=== PATIENT | male | born 1995 | race Hispanic/Latino ===

== ENCOUNTER 2020-08-01 19:13 | Emergency (ER) | payer SELFPAY ==
[~2020-08-01] VITALS: Ht 175.3 cm; Wt 127.0 kg
[2020-08-01] MEDS ORDERED: ONDANSETRON HCL INJ 2MG/ML 2ML 2 MG/ML VIAL IV STA (19:22)
[2020-08-01 19:42] LABS: BASOPHILS % 0.3 % (0.0-1.0); EOSINOPHILS # (AUTO) 0.5 (0.0-0.4); EOSINOPHILS % 6.6 % (0.0-6.0); HEMATOCRIT 43.3 % (38.2-49.6); HEMOGLOBIN 14.4 g/dL (14.0-18.0); LYMPHOCYTES # (AUTO) 2.4 (1.0-3.2); LYMPHOCYTES % 33.2 % (18.0-39.1); MEAN CORPUSCULAR HEMOGLOBIN 28.6 pg (28-32); MEAN CORPUSCULAR HGB CONC 33.3 g/dL (31-35); MEAN CORPUSCULAR VOLUME 86.1 fL (81-99); MONOCYTES # (AUTO) 0.4 (0.2-0.8); NEUTROPHILS # (AUTO) 3.9 (2.1-6.9); NEUTROPHILS % 54.6 % (38.7-80.0); PLATELET COUNT 238 x10e3/uL (140-360); RED BLOOD COUNT 5.03 x10e6/uL (4.3-5.7); RED CELL DISTRIBUTION WIDTH 12.5 % (11.7-14.4)
[2020-08-01 19:55] LABS: CLARITY,URINE CLEAR (CLEAR); COLOR,URINE YELLOW (YELLOW)
[2020-08-01 19:56] LABS: KETONES,URINE NEGATIVE (NEGATIVE); LEUKOCYTE ESTERASE ,URINE NEGATIVE (NEGATIVE); NITRITE,URINE NEGATIVE (NEGATIVE); PROTEIN,URINE DIPSTICK NEGATIVE (NEGATIVE); URINE UROBILINOGEN 0.2 mg/dL (0.2 - 1)
[2020-08-01 20:02] LABS: RBC,URINE 0-5 /HPF (0-5); WBC,URINE (MAN) 0-5 /HPF (0-5)
[2020-08-01 20:07] LABS: AMYLASE 29 U/L (25-125); LIPASE 23 U/L (8-78)
[2020-08-01 20:12] LABS: ALANINE AMINOTRANSFERASE 106 IU/L (0-55); ALBUMIN 3.9 g/dL (3.5-5.0); ALBUMIN/GLOBULIN RATIO 1.1 (0.8-2.0); ALKALINE PHOSPHATASE 97 IU/L (40-150); ANION GAP 14.5 mmol/L (8-16); BLOOD UREA NITROGEN 12 mg/dL (7-26); BUN/CREATININE RATIO 12 (6-25); CALCIUM 8.7 mg/dL (8.4-10.2); CARBON DIOXIDE 21 mmol/L (22-29); CHLORIDE 108 mmol/L (98-107); EST GLOMERULAR FILTRATION RATE > 60 ML/MIN (60-); GLUCOSE 113 mg/dL (74-118); POTASSIUM 3.5 mmol/L (3.5-5.1); SODIUM 140 mmol/L (136-145)
[2020-08-01] MEDS ORDERED: LEVOFLOXACIN 500 MG TAB PO ONE (23:15)
[2020-08-01 23:22] VITALS: BP 139/72
== END 2020-08-01 23:24 | disposition home or self-care (01) ==
LOC: ER 19:52
DX: J18.9 Pneumonia, unspecified organism (principal); R11.0 Nausea; R10.13 Epigastric pain
CPT/HCPCS: 36415; 71046; 76705; 80053; 81001; 82150; 83690; 85025; 99284; J2405

== ENCOUNTER 2020-08-04 08:45 | Emergency (ER) | payer SELFPAY ==
[~2020-08-04] VITALS: Ht 175.3 cm; Wt 127.0 kg
== END 2020-08-04 09:43 | disposition home or self-care (01) ==
LOC: ER 09:12
DX: R11.2 Nausea with vomiting, unspecified (principal)
CPT/HCPCS: 99283

== ENCOUNTER 2020-08-13 09:44 | Emergency (ER) | payer SELFPAY ==
[~2020-08-13] VITALS: Ht 175.3 cm; Wt 117.9 kg
[2020-08-13] MEDS ORDERED: DEXAMETHASONE SOD PHOS 10 MG/1 ML VIAL IV ONE (10:15)
[2020-08-13] MEDS ORDERED: MAGNESIUM/ALUMINUM/SIMETHICONE 30 ML UDC PO ONE (10:30)
[2020-08-13] MEDS ORDERED: PREDNISONE20 MG PO (12:18)
[2020-08-13] MEDS ORDERED: CEFTRIAXONE SOD 1 GM VIAL IM ONE (12:30)
[2020-08-13] MEDS ORDERED: LIDOCAINE HCL 1% 2 ML AMP ONE (12:48)
== END 2020-08-13 12:44 | disposition home or self-care (01) ==
LOC: ER 10:22
DX: J05.10 Acute epiglottitis without obstruction (principal); R09.89 Other specified symptoms and signs involving the circulatory and respiratory systems; R13.10 Dysphagia, unspecified
CPT/HCPCS: 70360; 99283; J0696; J1100; J2001

== ENCOUNTER 2020-08-15 09:30 | Emergency (ER) | payer SELFPAY ==
[~2020-08-15] VITALS: Ht 175.3 cm; Wt 117.9 kg
[~2020-08-15 09:30] MED LIST: PREDNISONE20 MG PO
[2020-08-15 12:45] VITALS: BP 134/72
== END 2020-08-15 11:57 | disposition home or self-care (01) ==
LOC: ER 09:47
DX: J02.9 Acute pharyngitis, unspecified (principal)
CPT/HCPCS: 70360; 99283

== ENCOUNTER 2020-09-26 10:41 | Emergency (ER) | payer SELFPAY ==
[~2020-09-26] VITALS: Ht 175.3 cm; Wt 117.9 kg
[2020-09-26] MEDS ORDERED: DONNATAL/LIDOCAINE/MAALOX 30 ML SUSP PO STA (10:51)
[2020-09-26] MEDS ORDERED: PANTOPRAZOLE SOD 40 MG TABEC PO ONE (11:00)
[2020-09-26] MEDS ORDERED: LIDOCAINE VISC 2% SOLN 15 ML UDC ONE (11:22)
[2020-09-26] MEDS ORDERED: BELLADONNA ALK/PHENOBARBITAL 5 ML UDC ONE (11:22)
[2020-09-26] MEDS ORDERED: MAGNESIUM/ALUMINUM/SIMETHICONE 30 ML UDC ONE (11:22)
== END 2020-09-26 12:56 | disposition home or self-care (01) ==
LOC: ER 11:00
DX: R07.89 Other chest pain (principal); K21.9 Gastro-esophageal reflux disease without esophagitis; F41.9 Anxiety disorder, unspecified
CPT/HCPCS: 71045; 93005; 99282; S0164

== ENCOUNTER 2020-10-16 17:56 | Emergency (ER) | payer SELFPAY ==
[~2020-10-16] VITALS: Ht 175.3 cm; Wt 117.9 kg
[2020-10-16] MEDS ORDERED: ACETAMIN/BUTALBITAL/CAFFEINE TAB PO ONE (18:15)
[2020-10-16] MEDS ORDERED: MECLIZINE HCL 12.5 MG TAB PO ONE (18:15)
[2020-10-16] MEDS ORDERED: ONDANSETRON HCL 4 MG ORAL DISINTEGRATING TAB PO ONE (18:15)
[2020-10-16] MEDS ORDERED: ZOFRAN4 MG SL (19:58)
[2020-10-16] MEDS ORDERED: MECLIZINE HCL12.5 MG PO (19:58)
== END 2020-10-16 20:39 | disposition home or self-care (01) ==
LOC: ER 18:10
DX: R42 Dizziness and giddiness (principal); R11.2 Nausea with vomiting, unspecified; F41.9 Anxiety disorder, unspecified; K21.9 Gastro-esophageal reflux disease without esophagitis
CPT/HCPCS: 99283; J8597; Q0162

== ENCOUNTER 2020-10-18 09:22 | Emergency (ER) | payer SELFPAY ==
[~2020-10-18] VITALS: Ht 175.3 cm; Wt 117.9 kg
[~2020-10-18 09:22] MED LIST changes: +MECLIZINE HCL12.5 MG PO; +ZOFRAN4 MG SL
== END 2020-10-18 10:00 | disposition home or self-care (01) ==
LOC: ER 09:40
DX: R06.00 Dyspnea, unspecified (principal); R53.83 Other fatigue; F41.9 Anxiety disorder, unspecified; K21.9 Gastro-esophageal reflux disease without esophagitis
CPT/HCPCS: 99282

== ENCOUNTER 2020-10-29 11:40 | Emergency (ER) | payer SELFPAY ==
[~2020-10-29] VITALS: Ht 175.3 cm; Wt 117.9 kg
[2020-10-29 12:40] LABS: CLARITY,URINE CLEAR (CLEAR); COLOR,URINE YELLOW (YELLOW); KETONES,URINE NEGATIVE (NEGATIVE); LEUKOCYTE ESTERASE ,URINE NEGATIVE (NEGATIVE); NITRITE,URINE NEGATIVE (NEGATIVE); PROTEIN,URINE DIPSTICK NEGATIVE (NEGATIVE); URINE UROBILINOGEN 0.2 mg/dL (0.2 - 1)
[2020-10-29 12:47] LABS: MUCUS,URINE FEW (RARE); WBC,URINE (MAN) 0-5 /HPF (0-5)
[2020-10-29 14:02] VITALS: BP 124/71
== END 2020-10-29 14:03 | disposition home or self-care (01) ==
LOC: ER 12:00
DX: R06.00 Dyspnea, unspecified (principal); J02.9 Acute pharyngitis, unspecified; K21.9 Gastro-esophageal reflux disease without esophagitis; F41.9 Anxiety disorder, unspecified
CPT/HCPCS: 71045; 81001; 99283

== ENCOUNTER 2021-01-20 21:53 | Emergency (ER) | payer SELFPAY ==
[~2021-01-20] VITALS: Ht 175.3 cm; Wt 117.9 kg
== END 2021-01-21 | disposition home or self-care (01) ==
LOC: ER 22:50
DX: R06.02 Shortness of breath (principal); F41.9 Anxiety disorder, unspecified; K21.9 Gastro-esophageal reflux disease without esophagitis
CPT/HCPCS: 99283

== ENCOUNTER 2021-02-18 18:29 | Emergency (ER) | payer SELFPAY ==
[~2021-02-18] VITALS: Ht 175.3 cm; Wt 117.9 kg
== END 2021-02-18 19:45 | disposition left against medical advice (07) ==
LOC: ER 18:45
DX: J06.9 Acute upper respiratory infection, unspecified (principal)
CPT/HCPCS: 93005

== ENCOUNTER 2021-03-06 16:43 | Emergency (ER) | payer SELFPAY ==
[~2021-03-06] VITALS: Ht 172.7 cm; Wt 113.4 kg
== END 2021-03-06 17:25 | disposition home or self-care (01) ==
LOC: ER 16:46
DX: F41.9 Anxiety disorder, unspecified (principal); K21.9 Gastro-esophageal reflux disease without esophagitis
CPT/HCPCS: 99282; 99283

== ENCOUNTER 2024-01-27 21:19 | Emergency (ER) | payer SELFPAY ==
[~2024-01-27] VITALS: Ht 175.3 cm; Wt 113.4 kg
[2024-01-27 21:52] VITALS: PULSE 71; RESP 20; TEMP 98.3; O2SAT 100
[2024-01-27] MEDS: KETOROLAC TROMETHAMINE 60 MG/2 ML VIAL IM ONE (22:01)
[2024-01-27] MEDS ORDERED: KETOROLAC TROMETHAMINE 60 MG/2 ML VIAL ONE (22:05)
== END 2024-01-27 22:27 | disposition home or self-care (01) ==
LOC: ER 21:25
DX: S39.012A Strain of muscle, fascia and tendon of lower back, initial encounter (principal); X50.0XXA Overexertion from strenuous movement or load, initial encounter; K21.9 Gastro-esophageal reflux disease without esophagitis; F41.9 Anxiety disorder, unspecified
CPT/HCPCS: 99282; J1885